=== PATIENT | female | born 1975 | race Caucasian/White ===

== ENCOUNTER 2018-03-13 13:03 | Day surgery (SDC) | payer BC ==
[~2018-03-13] VITALS: Ht 170.2 cm; Wt 72.3 kg
[~2018-03-13 13:03] MED LIST: B Complex1 EAC2 PO; CLIN300 PO; Roxicodone5 MG PO; SERT100 PO
== END 2018-03-13 15:57 | disposition home or self-care (01) ==
LOC: ORSCSDS 13:03
PROVIDERS: Obstetrics & Gynecology
PROC: 0U5B8ZZ Destruction of Endometrium, Via Natural or Artificial Opening Endoscopic (ICD-10-PCS; principal; 2018-03-13 14:15)
PROC: 0UDB8ZX Extraction of Endometrium, Via Natural or Artificial Opening Endoscopic, Diagnostic (ICD-10-PCS; principal; 2018-03-13 14:15)
DX: N92.1 Excessive and frequent menstruation with irregular cycle (principal)
CPT/HCPCS: 88305; J0690; J1100; J1885; J2250; J2405; J3010; J7120

== ENCOUNTER 2023-08-25 12:02 | Day surgery (SDC) | payer BC ==
[~2023-08-25] VITALS: Ht 170.2 cm; Wt 68.7 kg
[~2023-08-25 12:02] MED LIST changes: +Diethylpropion75 MG; +Phendimetrazine35 MG PO
[2023-08-25 13:49] VITALS: BP 101/70
== END 2023-08-25 13:48 | disposition home or self-care (01) ==
LOC: ORSCSDS 12:02
PROVIDERS: Internal Medicine Gastroenterology
PROC: 0DJD8ZZ Inspection of Lower Intestinal Tract, Via Natural or Artificial Opening Endoscopic (ICD-10-PCS; principal; 2023-08-25 13:30)
DX: K62.5 Hemorrhage of anus and rectum (principal); Z79.899 Other long term (current) drug therapy
CPT/HCPCS: J1980; J2704; J7120